=== PATIENT | female | born 1955 | race Caucasian/White ===

== ENCOUNTER 2022-04-26 16:19 | Emergency (ER) | payer OTHER ==
[~2022-04-26] VITALS: Ht 149.9 cm; Wt 63.0 kg
[2022-04-26 16:25] VITALS: BP 160/80
[2022-04-26] MEDS ORDERED: IBUPROFEN 600 MG TAB PO ONE (17:00)
[2022-04-26] MEDS ORDERED: IBUP-2213 PO ×2 (17:54→22:07)
[2022-04-26 18:40] VITALS: BP 134/67
--- NOTE | 2022-04-26 18:58 | NUR ---
BIB SELF C/O 05/10 LEFT WRIST PAIN X 2 DAYS. DENIES TRAUMA. BLOOD SUGAR 118 AT THIS TIME. PMH: DM, LIVER PROBLEM,
== END 2022-04-26 18:40 | disposition home or self-care (01) ==
LOC: MED 16:19
DX: S63.502A Unspecified sprain of left wrist, initial encounter (principal); E11.9 Type 2 diabetes mellitus without complications; Z88.1 Allergy status to other antibiotic agents; Z79.899 Other long term (current) drug therapy; X58.XXXA Exposure to other specified factors, initial encounter; Y93.89 Activity, other specified; Y92.89 Other specified places as the place of occurrence of the external cause; Y99.8 Other external cause status
CPT/HCPCS: 73110; 99283